=== PATIENT | male | born 1945 | race Hispanic/Latino ===

== ENCOUNTER 2021-12-26 18:19 | Inpatient (IN) | payer SELFPAY ==
[~2021-12-26 18:19] MED LIST: Heparin 1,000 UNITS/ML VIAL ONE; Iopamidol-370 76% 500 ML 1 ML ONE
[2021-12-26 18:58] LABS: Hemoglobin 15.1 g/dL (14.0-18.0); Mean Corpuscular HGB CONC 32.3 g/dL (32.0-36.0); Mean Corpuscular Hemoglobin 32.8 pg (27.0-31.0); Mean Platelet Volume 6.6 fL (7.4-10.4); Platelet Count 253 thou/uL (130-400); RBC Distribution Width 12.5 % (11.5-14.5); White Blood Cell (WBC) Count 15.5 thou/uL (4.8-10.8)
[2021-12-26 19:16] LABS: ALT (SGPT) 71 U/L (8-55); AST (SGOT) 58 U/L (5-34); Albumin 4.1 g/dL (3.4-4.8); Alkaline Phosphatase 91 U/L (40-110); Anion Gap 21 mmol/L (10-20); BUN (Urea Nitrogen) 24 mg/dL (8.4-25.7); Bilirubin, Total 0.6 mg/dL (0.2-1.2); Calc. Creatinine Clearance 0 mL/min (70-130); Calcium 9.9 mg/dL (7.8-10.44); Carbon Dioxide 20 mmol/L (23-31); Chloride 98 mmol/L (98-107); Globulin 3.2 g/dL (2.4-3.5); Glucose 189 mg/dL (83-110); Protein, Total 7.3 g/dL (5.8-8.1); Sodium 135 mmol/L (136-145)
[2021-12-26 19:22] LABS: Band 24 % (5-11); Lymphocytes 1 % (21-51); MDiff Complete? YES; Macrocytosis SLIGHT = 6-15 cells (100X) (0-5/hpf); Metamyelocyte 4 % (0-0); Neutrophil 68 % (42-75); Platelet Morphology Comment Appears Adequate; Reactive Lymphocytes 3 % (0-10)
[2021-12-26 20:15] LABS: Prothrombin Time 13.1 sec (12.0-14.7)
[2021-12-26 20:16] LABS: PTT 27.2 sec (22.9-36.1)
[2021-12-26 20:22] LABS: Lipase 24 U/L (8-78); Magnesium 1.4 mg/dL (1.6-2.6)
[2021-12-26] MEDS ORDERED: Ketorolac Tromethamine 30 MG/ML VIAL ONE (21:07)
[2021-12-26] MEDS ORDERED: cefTRIAXone\\ROCEPHIN 1 GM VIAL ONE (21:07)
[2021-12-26] MEDS ORDERED: Ondansetron PF 4 MG/2 ML Vial ONE (21:07)
[2021-12-26] MEDS ORDERED: Morphine 4 MG/ML VIAL ONE (21:07)
[2021-12-26 22:17] LABS: Bacteria/HPF 4+ HPF (None Seen); Bilirubin Negative (Negative); Blood, Urine 3+ (Negative); Clarity Extra Turbid (Clear); Glucose, Urine (Dipstick) Normal (Negative); Ketone, Urine Trace mg/dL (Negative); Leukocyte 500 Leu/uL (Negative); Nitrite Negative (Negative); Protein, Urine (Dipstick) 70 mg/dL (Neg-Trace); RBC/HPF Greater than 50 HPF (0-3); Squamous Epithelial 0-3 HPF (0-3); Urobilinogen Normal mg/dL (Less than 2); WBC/HPF Greater than 50 HPF (0-3); pH, Urine 5.5 (5.0-9.0)
[2021-12-26 22:18] LABS: Specific Gravity, Urine 1.048 (1.002-1.036)
[2021-12-26] MEDS ORDERED: Vancomycin 1 GM/200 ML BAG ONE (22:54)
[2021-12-26] MEDS ORDERED: Midazolam HCl 2 mg/2 ml Vial ONE (23:33)
[2021-12-27] MEDS ORDERED: Norepinephrine 8 MG/0.9% NS 250 ML ONE (00:03)
[2021-12-27] MEDS ORDERED: Magnesium 2 GM/50 ML(in water) 2 GM in Premix Bag 1 BAG IVPB SCH ×2 (00:57→09:15)
[2021-12-27] MEDS ORDERED: Dextrose 50% Abboject 50 ML SYRINGE SLOW IVP PRN (00:57)
[2021-12-27] MEDS ORDERED: Ondansetron PF 4 MG/2 ML Vial IVP PRN (00:57)
[2021-12-27] MEDS ORDERED: Dextrose 5% in Water 1,000 ML IV PRN (00:57)
[2021-12-27] MEDS ORDERED: Ondansetron ODT 4 MG TAB PO PRN (00:57)
[2021-12-27 02:01] LABS: Hemoglobin 13.2 g/dL (14.0-18.0); Mean Corpuscular HGB CONC 32.8 g/dL (32.0-36.0); Mean Platelet Volume 6.6 fL (7.4-10.4); Platelet Count 227 thou/uL (130-400); RBC Distribution Width 12.7 % (11.5-14.5); Red Blood Cell (RBC) Count 3.98 mill/uL (4.70-6.10); White Blood Cell (WBC) Count 17.4 thou/uL (4.8-10.8)
[2021-12-27 02:23] LABS: Anion Gap 19 mmol/L (10-20); BUN (Urea Nitrogen) 25 mg/dL (8.4-25.7); Calc. Creatinine Clearance 0 mL/min (70-130); Carbon Dioxide 16 mmol/L (23-31); Chloride 104 mmol/L (98-107); Sodium 135 mmol/L (136-145)
[2021-12-27 02:24] LABS: ALT (SGPT) 50 U/L (8-55); AST (SGOT) 35 U/L (5-34); Albumin 3.3 g/dL (3.4-4.8); Alkaline Phosphatase 68 U/L (40-110); Bilirubin, Total 0.6 mg/dL (0.2-1.2); Calcium 7.9 mg/dL (7.8-10.44); Globulin 2.6 g/dL (2.4-3.5); Glucose 185 mg/dL (83-110); Magnesium 1.1 mg/dL (1.6-2.6); Protein, Total 5.9 g/dL (5.8-8.1)
[2021-12-27 02:36] LABS: Band 24 % (5-11); Lymphocytes 6 % (21-51); MDiff Complete? YES; Macrocytosis MODERATE=16-30 cells (100X) (0-5/hpf); Metamyelocyte 2 % (0-0); Monocytes 1 % (0-10); Neutrophil 67 % (42-75); Platelet Morphology Comment Appears Adequate
[2021-12-27] MEDS: Sodium Chloride 0.9% 1,000 ML IV SCH ×2 (02:41→12:23)
[2021-12-27 02:43] LABS: SARS-CoV-2 NAA Rapid Test Not Detected (NotDetected)
[2021-12-27 03:13] VITALS: BMI 26.4
[2021-12-27] MEDS ORDERED: Norepinephrine 8 MG/0.9% NS 250 ML IVPB SCH (03:30)
[2021-12-27 05:09] LABS: Lactic Acid 3.8 mmol/L (0.5-2.2)
[2021-12-27] MEDS: HumaLOG 300 UNITS/3 ML VIAL SC PRN ×3 (07:04→17:22)
[2021-12-27] MEDS: Famotidine 20 MG TAB PO SCH ×2 (08:13→20:58)
[2021-12-27] MEDS ORDERED: Electrolyte Replacement Protocol 1 EACH FS SCH (11:30)
[2021-12-27] MEDS: Vancomycin 1 GM in Premix Bag 1 BAG IVPB SCH ×2 (11:51→23:58)
[2021-12-27] MEDS: Acetaminophen 500 MG TAB PO PRN (11:51)
[2021-12-27] MEDS ORDERED: Lactated Ringer's 1,000 ML IV SCH (12:15)
[2021-12-27] MEDS ORDERED: Lactated Ringer's 500 ML IV SCH (12:15)
[2021-12-27] MEDS ORDERED: Electrolyte Replacement Protocol FS PRN (12:15)
[2021-12-27] MEDS ORDERED: Magnesium Sulfate In Water 4 GM in Premix Bag 1 BAG IVPB SCH (12:15)
[2021-12-27] MEDS ORDERED: Fioricet 325/50/40 mg Tablet PO PRN (15:12)
[2021-12-27] MEDS ORDERED: Meropenem 1 GM in Sodium Chloride 0.9% 100 ML IVPB SCH ×2 (18:15→22:00)
[2021-12-27] MEDS ORDERED: cefTRIAXone\\ROCEPHIN 2 GM in Sodium Chloride 0.9% 100 ML IVPB SCH (21:00)
[2021-12-28] MEDS: Meropenem 1 GM in Sodium Chloride 0.9% 100 ML IVPB SCH ×3 (02:30→17:09)
[2021-12-28] MEDS: Acetaminophen 500 MG TAB PO PRN (02:40)
[2021-12-28] MEDS ORDERED: traMADol HCl 50 MG TAB PO SCH (04:30)
[2021-12-28 05:36] LABS: Anion Gap 12 mmol/L (10-20); BUN (Urea Nitrogen) 11 mg/dL (8.4-25.7); Calc. Creatinine Clearance 118 mL/min (70-130); Calcium 8.3 mg/dL (7.8-10.44); Carbon Dioxide 20 mmol/L (23-31); Chloride 105 mmol/L (98-107); Glucose 194 mg/dL (83-110); Potassium 4.3 mmol/L (3.5-5.1); Sodium 133 mmol/L (136-145)
[2021-12-28] MEDS: HumaLOG 300 UNITS/3 ML VIAL SC PRN ×3 (07:33→21:05)
[2021-12-28 07:57] LABS: #Eosinphils 0.1 thou/uL (0.0-0.7); #Monocytes 0.6 thou/uL (0.11-0.59); #Neutrophils 11.8 thou/uL (1.40-6.50); %Basophils 0.1 % (0.0-1.0); %Lymphocytes 7.1 % (21.0-51.0); %Monocytes 4.7 % (0.0-10.0); %Neutrophils 87.1 % (42.0-75.0); Hemoglobin 12.4 g/dL (14.0-18.0); Mean Corpuscular HGB CONC 32.5 g/dL (32.0-36.0); Mean Corpuscular Hemoglobin 32.7 pg (27.0-31.0); Mean Platelet Volume 6.6 fL (7.4-10.4); Platelet Count 173 thou/uL (130-400); RBC Distribution Width 12.5 % (11.5-14.5); Red Blood Cell (RBC) Count 3.81 mill/uL (4.70-6.10); White Blood Cell (WBC) Count 13.5 thou/uL (4.8-10.8)
[2021-12-28] MEDS: Famotidine 20 MG TAB PO SCH ×2 (08:00→21:04)
[2021-12-28] MEDS ORDERED: Magnesium 2 GM/50 ML(in water) 2 GM in Premix Bag 1 BAG IVPB SCH (08:00)
[2021-12-28 08:13] LABS: Lactic Acid 1.1 mmol/L (0.5-2.2)
[2021-12-28] MEDS: Vancomycin 1 GM in Premix Bag 1 BAG IVPB SCH ×2 (11:28→23:03)
[2021-12-28 22:33] LABS: Vancomycin, Trough 8.2 ug/mL
[2021-12-29] MEDS: Meropenem 1 GM in Sodium Chloride 0.9% 100 ML IVPB SCH ×3 (01:48→17:31)
[2021-12-29 05:04] LABS: Magnesium 1.9 mg/dL (1.6-2.6)
[2021-12-29] MEDS: HumaLOG 300 UNITS/3 ML VIAL SC PRN ×3 (05:57→17:32)
[2021-12-29] MEDS ORDERED: traMADol HCl 50 MG TAB PO SCH (06:30)
[2021-12-29] MEDS ORDERED: Magnesium 2 GM/50 ML(in water) 2 GM in Premix Bag 1 BAG IVPB SCH (08:00)
[2021-12-29] MEDS: Famotidine 20 MG TAB PO SCH ×2 (08:52→20:30)
[2021-12-29] MEDS ORDERED: Vancomycin 1.5 GRAM/300 ML BAG 1.5 GM in Premix Bag 1 BAG IVPB SCH (09:00)
[2021-12-29] MEDS ORDERED: Polyethylene Glycol 3350 17 GM Packet PO PRN (12:29)
[2021-12-29] MEDS ORDERED: Docusate 100 MG CAP PO SCH (12:30)
[2021-12-29] MEDS: traMADol HCl 50 MG TAB PO PRN (13:07)
[2021-12-30] MEDS: Meropenem 1 GM in Sodium Chloride 0.9% 100 ML IVPB SCH ×3 (02:53→18:00)
[2021-12-30 05:16] LABS: Anion Gap 10 mmol/L (10-20); BUN (Urea Nitrogen) 9 mg/dL (8.4-25.7); Calc. Creatinine Clearance 115 mL/min (70-130); Calcium 8.8 mg/dL (7.8-10.44); Carbon Dioxide 26 mmol/L (23-31); Chloride 102 mmol/L (98-107); Glucose 178 mg/dL (83-110); Potassium 3.4 mmol/L (3.5-5.1); Sodium 135 mmol/L (136-145)
[2021-12-30 05:20] LABS: Hemoglobin 12.7 g/dL (14.0-18.0); Mean Corpuscular HGB CONC 33.3 g/dL (32.0-36.0); Mean Corpuscular Hemoglobin 32.9 pg (27.0-31.0); Mean Corpuscular Volume 98.6 fL (78.0-98.0); Mean Platelet Volume 6.9 fL (7.4-10.4); Platelet Count 214 thou/uL (130-400); RBC Distribution Width 12.2 % (11.5-14.5); Red Blood Cell (RBC) Count 3.85 mill/uL (4.70-6.10); White Blood Cell (WBC) Count 6.9 thou/uL (4.8-10.8)
[2021-12-30] MEDS ORDERED: Potassium Chloride 20 MEQ TAB PO SCH (07:30)
[2021-12-30] MEDS: Famotidine 20 MG TAB PO SCH ×2 (08:23→19:41)
[2021-12-30] MEDS: HumaLOG 300 UNITS/3 ML VIAL SC PRN (11:22)
[2021-12-30] MEDS: Docusate 100 MG CAP PO PRN (11:22)
[2021-12-30] MEDS ORDERED: Docusate 100 MG CAP PO SCH (11:30)
[2021-12-30] MEDS ORDERED: Polyethylene Glycol 3350 17 GM Packet PO SCH (11:30)
[2021-12-30] MEDS: traMADol HCl 50 MG TAB PO PRN (19:41)
[2021-12-31] MEDS: Meropenem 1 GM in Sodium Chloride 0.9% 100 ML IVPB SCH ×3 (02:27→17:33)
[2021-12-31] MEDS: Docusate 100 MG CAP PO PRN (06:07)
[2021-12-31] MEDS: HumaLOG 300 UNITS/3 ML VIAL SC PRN ×2 (06:07→20:54)
[2021-12-31] MEDS: Famotidine 20 MG TAB PO SCH ×2 (08:07→20:54)
[2021-12-31] MEDS: traMADol HCl 50 MG TAB PO PRN ×3 (08:08→20:54)
[2021-12-31] MEDS ORDERED: Amlodipine 10 MG TAB PO SCH (09:00)
[2021-12-31] MEDS ORDERED: hydrALAZINE 20 MG/ML VIAL SLOW IVP SCH (17:15)
[2021-12-31] MEDS ORDERED: Prochlorperazine 10 MG/2 ML VIAL IVP SCH (17:15)
[2022-01-01] MEDS: Meropenem 1 GM in Sodium Chloride 0.9% 100 ML IVPB SCH ×3 (01:53→17:29)
[2022-01-01] MEDS ORDERED: ISOVUE-370 76%-LOCM 1 ML ONE (08:00)
[2022-01-01] MEDS: Famotidine 20 MG TAB PO SCH ×2 (09:18→19:52)
[2022-01-01] MEDS: Amlodipine 5 MG TAB PO SCH (09:18)
[2022-01-01] MEDS: Tamsulosin HCl 0.4 MG CAP PO SCH (09:18)
[2022-01-01] MEDS: Docusate 100 MG CAP PO PRN (09:18)
[2022-01-01] MEDS: Losartan 25 MG TAB PO SCH (09:18)
[2022-01-01] MEDS: HumaLOG 300 UNITS/3 ML VIAL SC PRN ×2 (11:04→16:48)
[2022-01-01] MEDS: traMADol HCl 50 MG TAB PO PRN (16:23)
[2022-01-01] MEDS: Acetaminophen 500 MG TAB PO PRN (19:53)
[2022-01-01] MEDS ORDERED: Bisacodyl 10 MG SUPP PR SCH (21:30)
[2022-01-02] MEDS: Meropenem 1 GM in Sodium Chloride 0.9% 100 ML IVPB SCH ×2 (02:29→09:04)
[2022-01-02 05:02] LABS: Hemoglobin 13.9 g/dL (14.0-18.0); Mean Corpuscular HGB CONC 33.2 g/dL (32.0-36.0); Mean Corpuscular Hemoglobin 32.9 pg (27.0-31.0); Mean Platelet Volume 6.2 fL (7.4-10.4); Platelet Count 355 thou/uL (130-400); RBC Distribution Width 12.5 % (11.5-14.5); Red Blood Cell (RBC) Count 4.24 mill/uL (4.70-6.10); White Blood Cell (WBC) Count 6.5 thou/uL (4.8-10.8)
[2022-01-02 05:47] LABS: Anion Gap 16 mmol/L (10-20); BUN (Urea Nitrogen) 15 mg/dL (8.4-25.7); Calc. Creatinine Clearance 112 mL/min (70-130); Calcium 8.9 mg/dL (7.8-10.44); Carbon Dioxide 21 mmol/L (23-31); Chloride 102 mmol/L (98-107); Glucose 152 mg/dL (83-110); Potassium 3.7 mmol/L (3.5-5.1); Sodium 135 mmol/L (136-145)
[2022-01-02] MEDS: Acetaminophen 500 MG TAB PO PRN (06:20)
[2022-01-02] MEDS: Docusate 100 MG CAP PO PRN (06:20)
[2022-01-02] MEDS ORDERED: Finasteride 5 MG TAB PO SCH (09:00)
[2022-01-02] MEDS: Tamsulosin HCl 0.4 MG CAP PO SCH (09:04)
[2022-01-02] MEDS: Famotidine 20 MG TAB PO SCH (09:04)
[2022-01-02] MEDS: Amlodipine 5 MG TAB PO SCH (09:04)
[2022-01-02] MEDS: Losartan 25 MG TAB PO SCH (09:04)
[2022-01-02] MEDS: HumaLOG 300 UNITS/3 ML VIAL SC PRN (10:53)
[2022-01-02 15:55] VITALS: BP 161/82; TEMP 98.4
== END 2022-01-02 16:57 | disposition home or self-care (01) | DRG 871 ==
LOC: ERS 18:19 → CCU 23:50 → 2SW 12-28 01:07
PROVIDERS: ADMIT Family Medicine; ATTEND Internal Medicine
PROC: 3E03329 Introduction of Other Anti-infective into Peripheral Vein, Percutaneous Approach (ICD-10-PCS; 2021-12-26)
PROC: 3E033XZ Introduction of Vasopressor into Peripheral Vein, Percutaneous Approach (ICD-10-PCS; 2021-12-27)
PROC: 0T9B70Z Drainage of Bladder with Drainage Device, Via Natural or Artificial Opening (ICD-10-PCS; 2021-12-28)
PROC: 02HV33Z Insertion of Infusion Device into Superior Vena Cava, Percutaneous Approach (ICD-10-PCS; principal; 2022-01-01)
PROC: B548ZZA Ultrasonography of Superior Vena Cava, Guidance (ICD-10-PCS; 2022-01-01)
DX: A41.51 Sepsis due to Escherichia coli [E. coli] (principal); R65.21 Severe sepsis with septic shock; N12 Tubulo-interstitial nephritis, not specified as acute or chronic; N30.01 Acute cystitis with hematuria; N13.8 Other obstructive and reflux uropathy; E87.1 Hypo-osmolality and hyponatremia; Z16.39 Resistance to other specified antimicrobial drug; N17.9 Acute kidney failure, unspecified; N18.30 Chronic kidney disease, stage 3 unspecified; E83.42 Hypomagnesemia; E11.22 Type 2 diabetes mellitus with diabetic chronic kidney disease; I12.9 Hypertensive chronic kidney disease with stage 1 through stage 4 chronic kidney disease, or unspecified chronic kidney disease; N40.1 Benign prostatic hyperplasia with lower urinary tract symptoms; R33.8 Other retention of urine; E87.6 Hypokalemia; Z20.822 Contact with and (suspected) exposure to COVID-19; Z88.2 Allergy status to sulfonamides
CPT/HCPCS: 36415; 36416; 36556; 36569; 71045; 74018; 74177; 80048; 80053; 80202; 81003; 81015; 83605; 83690; 83735; 85025; 85027; 85610; 85730; 87040; 87077; 87086; 87149; 87186; 90471; 90732; 93005; 96361; 96365; 96367; 96375; C1751; G0009; J0360; J0696; J0780; J1644; J1815; J1885; J2185; J2250; J2270; J2405; J3370; J3475; J3490; J7050; J7120; Q9966; Q9967; U0002; U0003; U0005

== ENCOUNTER 2022-01-04 17:10 | Emergency (ER) | payer SELFPAY ==
[2022-01-04 20:34] LABS: Bilirubin Negative (Negative); Blood, Urine 3+ (Negative); Clarity Extra Turbid (Clear); Glucose, Urine (Dipstick) 70 mg/dL (Negative); Ketone, Urine Negative (Negative); Leukocyte Negative Leu/uL (Negative); Nitrite Negative (Negative); Protein, Urine (Dipstick) 100 mg/dL (Neg-Trace); RBC/HPF Greater than 50 HPF (0-3); Specific Gravity, Urine 1.031 (1.002-1.036); Squamous Epithelial 0-3 HPF (0-3); Urobilinogen 12 mg/dL (Less than 2); pH, Urine 5.5 (5.0-9.0)
[2022-01-04 20:47] LABS: Bacteria/HPF 2+ HPF (None Seen); Renal Epithelial 0-3 HPF (None Seen)
[2022-01-04 20:48] LABS: Mucous/LPF Rare LPF (<2+)
[2022-01-04 22:00] LABS: Bacteria/HPF None Seen HPF (None Seen); Bilirubin Negative (Negative); Blood, Urine 2+ (Negative); Clarity Clear (Clear); Glucose, Urine (Dipstick) Normal (Negative); Ketone, Urine Negative (Negative); Leukocyte Negative Leu/uL (Negative); Nitrite Negative (Negative); Protein, Urine (Dipstick) 30 mg/dL (Neg-Trace); Specific Gravity, Urine 1.023 (1.002-1.036); Squamous Epithelial 0-3 HPF (0-3); Urobilinogen Normal mg/dL (Less than 2); WBC/HPF 0-3 HPF (0-3); pH, Urine 5.5 (5.0-9.0)
== END 2022-01-04 22:50 | disposition home or self-care (01) ==
LOC: ERS 17:10
DX: T83.091A Other mechanical complication of indwelling urethral catheter, initial encounter (principal); E11.9 Type 2 diabetes mellitus without complications; I10 Essential (primary) hypertension; Z79.899 Other long term (current) drug therapy
CPT/HCPCS: 81003; 81015; 99283